=== PATIENT | female | born 1970 | race Caucasian/White ===

== ENCOUNTER 2025-06-03 16:11 | Outpatient (CLI) | payer BC | END 2025-06-03 16:12 | disposition home or self-care (01) | LOC: SCSRAD 16:11 | PROVIDERS: ATTEND Family Medicine | DX: M25.541 Pain in joints of right hand (principal); M25.50 Pain in unspecified joint; M18.12 Unilateral primary osteoarthritis of first carpometacarpal joint, left hand ==